=== PATIENT | male | born 1965 | race Caucasian/White ===

== ENCOUNTER 2021-10-19 11:09 | Emergency (ER) | payer SELFPAY ==
[~2021-10-19] VITALS: Ht 177.8 cm; Wt 122.5 kg
[2021-10-19 11:10] VITALS: BP_SYST 151
--- NOTE | 2021-10-19 11:10 | NUR ---
BROUGHT IN BY ABBIE WEST AND PLACED IN HALLWAY CHAIR, AWAITING AVAILABLE NURSE AND BED.
--- NOTE | 2021-10-19 11:30 | NUR ---
Blood for labwork drawn from RIGHT HAND. Patient tolerated WELL. BLOOD DRAWN BY AGNES MUHAMMAD. HANDED TO OFFICER
--- NOTE | 2021-10-19 12:01 | NUR ---
DR IVERSON AT BEDSIDE FOR EVALUATION
[2021-10-19 12:05] VITALS: BP_SYST 129
--- NOTE | 2021-10-19 12:46 | NUR ---
Patient given written and verbal discharge instructions and verbalizes understanding. ER MD discussed with patient the results and treatment provided. Patient in stable condition. ID arm band removed. Rx of NONE given. Patient educated on pain management and to follow up with PMD. Pain Scale 0/10. Opportunity for questions provided and answered. Medication side effect fact sheet provided.
== END 2021-10-19 12:46 ==
LOC: SED 11:09
DX: S00.81XA Abrasion of other part of head, initial encounter (principal); X58.XXXA Exposure to other specified factors, initial encounter; Y93.89 Activity, other specified; Y92.89 Other specified places as the place of occurrence of the external cause; Y99.8 Other external cause status
CPT/HCPCS: 99283

== ENCOUNTER 2022-04-08 09:16 | Emergency (ER) | payer MEDICAID ==
[~2022-04-08] VITALS: Ht 177.8 cm; Wt 113.4 kg
[2022-04-08 09:16] VITALS: BP_SYST 138
[2022-04-08] MEDS ORDERED: LORazepam 2 MG/ML VIAL IVP ONE (10:30)
[2022-04-08] MEDS ORDERED: BACITRACIN/POLYMYXIN B SULFATE 30 GM TOPICAL OINT. TP ONE (10:30)
[2022-04-08] MEDS ORDERED: DIPH-TET-PERTUS Vaccine 0.5 ML VIAL (ADACEL) I.M. ONE (10:30)
[2022-04-08] MEDS ORDERED: NACL 0.9% 1,000 ML IV ONE (10:30)
[2022-04-08] MEDS ORDERED: BACITRACIN 1 GM OINT TP ONE (10:30)
[2022-04-08] MEDS ORDERED: LORazepam 1 MG TABLET PO ONE (11:15)
[2022-04-08 11:22] LABS: BASOPHILS # (AUTO) 0.2 K/uL (0.0-0.2); BASOPHILS % (AUTO) 1.6 % (0.0-2.0); EOSINOPHILS # (AUTO) 0.1 K/uL (0.0-0.4); EOSINOPHILS % (AUTO) 0.4 % (0.0-4.0); HEMATOCRIT 44.1 % (36-54); HEMOGLOBIN 15.8 g/dL (14.0-18.0); LYMPHOCYTES % (AUTO) 16.1 % (20.5-51.5); MEAN CORPUSCULAR HEMOGLOBIN 37 pg (27-31); MEAN CORPUSCULAR HGB CONC 36 % (32-36); MEAN CORPUSCULAR VOLUME 102 fL (79.0-98.0); MONOCYTES # (AUTO) 0.6 K/uL (0.0-1.0); MONOCYTES % (AUTO) 5.1 % (1.7-9.3); NEUTROPHILS # (AUTO) 9.5 K/uL (1.8-7.7); NEUTROPHILS % (AUTO) 76.8 % (40.0-70.0); PLATELET COUNT (AUTO) 399 K/uL (130-430); RED BLOOD CELL COUNT(AUTO) 4.31 MIL/uL (4.2-6.2); RED CELL DISTRIBUTION WIDTH 15.3 % (9.0-15.0); WHITE BLOOD COUNT (AUTO) 12.4 K/uL (4.8-10.8)
[2022-04-08 11:36] LABS: ANION GAP 10 (5-15); CALCIUM 7.8 mg/dL (8.4-11.0); CHLORIDE 104 mmol/L (98-107); CREATININE 0.73 mg/dL (0.55-1.30); GLUCOSE 117 mg/dL (70-99); INR 1.1 (0.80-1.20); PROTHROMBIN TIME 11.7 SECS (9.5-12.5); SODIUM SERUM 141 mmol/L (136-145); UREA NITROGEN, BLOOD 5 mg/dL (8-21)
[2022-04-08 11:38] VITALS: BP_SYST 154
[2022-04-08 11:42] LABS: GFR AFRICAN AMERICAN 143 mL/min (>90)
[2022-04-08 11:43] LABS: POTASSIUM 2.9 mmol/L (3.5-5.1)
[2022-04-08 11:50] LABS: ALANINE AMINOTRANSFERASE 41 U/L (12-78); ALBUMIN 3.3 g/dL (3.4-4.8); ASPARTATE AMINOTRANSFERASE 95 U/L (10-37); TOTAL BILIRUBIN 0.9 mg/dL (0.0-1.0)
[2022-04-08 11:56] LABS: ACETAMINOPHEN < 1 ug/mL (1-30)
== END 2022-04-08 11:30 | disposition left against medical advice (07) ==
LOC: SED 09:16
DX: S00.83XA Contusion of other part of head, initial encounter (principal); F10.129 Alcohol abuse with intoxication, unspecified; Y90.9 Presence of alcohol in blood, level not specified; Z79.899 Other long term (current) drug therapy; W18.39XA Other fall on same level, initial encounter; Y93.89 Activity, other specified; Y92.89 Other specified places as the place of occurrence of the external cause; Y99.8 Other external cause status
CPT/HCPCS: 36415; 80053; 83605; 84484; 85025; 85610; 87040; 99283; G0480; 90715; G0481; G0482